=== PATIENT | male | born 1980 | race African-American/Black ===

== ENCOUNTER 2018-07-31 08:31 | Emergency (ER) | payer OTHER ==
[~2018-07-31] VITALS: Ht 188 cm; Wt 136.1 kg
[2018-07-31 09:37] LABS: Basophils # (auto) 0.1 uL; Basophils % (auto) 1.2 % (0.0-2.0); Eosinophils # (auto) 0.2 uL; Eosinophils % (auto) 3.3 % (0.0-7.0); Hematocrit 45.2 % (41.0-53.0); Hemoglobin 14.6 g/dL (13.5-17.5); Lymphocytes # (auto) 1.8 uL; Lymphocytes % (auto) 27.2 % (10.0-50.0); Mean Corpuscular Hemoglobin 27.3 pg (28.0-32.0); Mean Corpuscular Hgb Conc. 32.4 g/dL (32.0-36.0); Mean Corpuscular Volume 84.5 fL (80.0-100.0); Monocytes # (auto) 0.7 uL; Monocytes % (auto) 10.4 % (0.0-12.0); Neutrophils # (auto) 3.7 uL; Neutrophils % (auto) 57.9 % (37.0-80.0); Platelet Count (auto) 197 10^3/uL (140-450); Red Blood Cells 5.35 10^6/uL (4.5-5.90); Red Cell Distribution Width 15.1 % (11.8-14.3); White Blood Cell 6.5 10^3/uL (4.4-10.8)
[2018-07-31 09:56] LABS: Anion Gap 7 (5-15); Blood Urea Nitrogen 18 mg/dL (7-18); Carbon Dioxide 26 mmol/L (21-32); Chloride 107 mmol/L (98-107); Glucose 97 mg/dL (74-106); Potassium 4.1 mmol/L (3.5-5.1); Sodium 140 mmol/L (136-145)
[2018-07-31 09:57] LABS: Alanine Aminotransferase 26 U/L (16-61); Albumin 3.5 g/dL (3.4-5.0); Aspartate Aminotransferase 13 U/L (15-37); Calcium 8.5 mg/dL (8.5-10.1); GFR African American 108 mL/min; GFR Non-African American 89 mL/min; Magnesium 2.1 mg/dL (1.6-2.6)
[2018-07-31 10:02] LABS: Alkaline Phosphatase 97 U/L (45-117); Bilirubin, Total 0.3 mg/dL (0.2-1.0); Total Protein 7.4 g/dL (6.4-8.2)
[2018-07-31] MEDS ORDERED: KETOROLAC TROMETH 30 MG/ML 1ML VIAL IV ONE (11:30)
[2018-07-31] MEDS ORDERED: PROMETHAZINE HCL 25 MG/ML 1ML IV ONE (11:30)
[2018-07-31 13:26] VITALS: BP 151/72
== END 2018-07-31 13:37 | disposition home or self-care (01) ==
LOC: EEVIPCON 08:31 → ER 08:31 → EDBD 08:31 → ER 13:37
DX: R07.2 Precordial pain (principal); M51.17 Intervertebral disc disorders with radiculopathy, lumbosacral region; R42 Dizziness and giddiness; E66.9 Obesity, unspecified; Z68.38 Body mass index [BMI] 38.0-38.9, adult
CPT/HCPCS: 36415; 71046; 80053; 83735; 84484; 85025; 93005; 96374; 96375; 99284; J1885; J2550